=== PATIENT | male | born 1955 | race Caucasian/White ===

== ENCOUNTER 2018-01-31 08:00 | Emergency (ER) | payer BC ==
[2018-01-31 08:16] VITALS: BP 129/82
--- NOTE | 2018-01-31 08:28 | UC ---
Throat Pain/Nasal Adonay HPI - HPI Summary HPI Summary: 1 week sinus congestion, sore throat, PND, fatigue. + ears full this am bl eyes sticky closed no fever, chills with conjunctivitis. No fever, chills rash. No cp, sob. no cough pt's medications reviewed this visit - History of Current Complaint Chief Complaint: UCGeneralIllness Stated Complaint: COUGH,SINUS/BILATERAL EYE COMPLAINT Time Seen by Provider: 01/31/18 08:23 Hx Obtained From: Patient Onset/Duration: Gradual Onset Severity: Mild Pain Intensity: 0 - Allergies/Home Medications Allergies/Adverse Reactions: Allergies Allergy/AdvReac Type Severity Reaction Status Date / Time No Known Allergies Allergy Verified 01/31/18 08:17 PMH/Surg Hx/FS Hx/Imm Hx Previously Healthy: Yes - Surgical History Surgical History: Yes Surgery Procedure, Year, and Place: multiple knee surgeries. right knee replacement. right rotator cuff repair - Family History Known Family History: Positive: Non-Contributory - Social History Lives: With Family Alcohol Use: "every other night ... glass of wine" Alcohol Amount: ond daily Substance Use Type: None Smoking Status (MU): Never Smoked Tobacco - Immunization History Most Recent Tetanus Shot: 11/2013 Review of Systems All Other Systems Reviewed And Are Negative: Yes Eyes: Positive: Drainage, Eye Redness. Negative: Blurred Vision, Diplopia, Photophobia ENT: Positive: Nasal Discharge, Sinus Congestion Respiratory: Positive: Negative Physical Exam - Summary Physical Exam Summary: Vital Signs Reviewed: Yes A+Ox3, no distress Eyes: LEVON. EOM intact and full, b/l eyes with yellow secretion, L>R, injected, no photophobia ENT: Hearing grossly normal TM x 2 clear, turbinates inflammed and boggy, + PND , sinus discomfort max L>R, mmoist, uvula midline, no exudate, no erythema Neck: Positive: Supple Respiratory: Positive: No respiratory distress, No accessory muscle use + CTA throughout no w/r Cardiovascular: RRR nl s1, s2 no m/r CBT <2 sec abd soft + BS nt/nd no guarding, no distension Musculoskeletal Exam: PELAYO x 4 without difficulty Strength Intact, ROM Intact Neurological: Positive: Alert, + sensation throughout Psychological: Positive: Normal Response To Family Skin: Positive: no rash, no ecchymosis Triage Information Reviewed: Yes Vital Signs: Initial Vital Signs Temp 97.1 F 01/31/18 08:13 Pulse 81 01/31/18 08:13 Resp 16 01/31/18 08:13 BP 129/82 01/31/18 08:13 Pulse Ox 96 01/31/18 08:13 Throat Pain/Nasal Course/Dx - Course Course Of Treatment: Pt with sinus congestion, PND x 7 days,. Today with thick, yellow discharge b/l R>L today. hydrate. motrin. decongesetant. abx. eye ointment. secretion precaution - Differential Dx/Diagnosis Provider Diagnosis: Rhinosinusitis, Bilateral conjunctivitis Discharge - Sign-Out/Discharge Documenting (check all that apply): Patient Departure All imaging exams completed and their final reports reviewed: No Studies - Discharge Plan Condition: Stable Disposition: HOME Prescriptions: Amoxicillin PO (*) [Amoxicillin 875 MG (*)] 875 mg PO BID #20 tab Polymyx/Trimethoprim OPTH* [Polytrim OPHTH*] 2 drop BOTH EYES Q6HR #1 btl Patient Education Materials: Acute Bronchitis (ED), Conjunctivitis (ED) Referrals: Erin Pascual PA [Primary Care Provider] - Additional Instructions: -Take antibiotics exactly as prescribed until gone -Use your albuterol puffer - 2 puffs ever 4-6 hours for the next 2 days - then as needed -Stay well hydrated - avoid excess caffeine and all alcohol - eat regular, healthy meals - humidify the air in the room where you sleep - boil water, run a hot steam shower, vaporizer, cups of water by heat register - okay to take over the counter decongestant and cough medication -- These infections are spread by secretions - do NOT share eating or drinking utensils - clean items you share with other people such as cell phones, computer mouse, TV remote, computer tablets,etc.. Once you have been antibiotics for 2 days, change your toothbrush and your pillowcase. - For your eyes - apply eye drops exactly as prescribed for 5 days - use a warm wash cloth to cleanse secretions from your eyes - do not reuse washcloth -Contact your doctor to arrange a follow-up appointment this week. Call your doctor, return here or go to the emergency department with any questions or concerns - Billing Disposition and Condition Condition: STABLE Disposition: Home
== END 2018-01-31 08:44 | disposition home or self-care (01) ==
LOC: UCCORT 08:00
DX: J32.9 Chronic sinusitis, unspecified (principal); H10.9 Unspecified conjunctivitis
CPT/HCPCS: 99212; G0463